=== PATIENT | male | born 1985 | race Caucasian/White ===

== ENCOUNTER 2019-05-13 14:02 | Emergency (ER) | payer OTHER ==
[~2019-05-13] VITALS: Ht 165.1 cm; Wt 68.0 kg
[2019-05-13] MEDS ORDERED: ZYRTEC10 M3 (14:39)
== END 2019-05-13 16:55 | disposition home or self-care (01) ==
LOC: ER 14:02
DX: T78.49XA Other allergy, initial encounter (principal); R21 Rash and other nonspecific skin eruption